=== PATIENT | male | born 1950 | race Asian ===

== ENCOUNTER → 2017-04-26 | Outpatient (CLI) | payer MEDICARE, OTHER | END | disposition home or self-care (01) | LOC: RADMN 08:32 | PROVIDERS: ATTEND Physical Medicine & Rehabilitation Spinal Cord Injury Medicine | DX: M48.061 Spinal stenosis, lumbar region without neurogenic claudication (principal); M51.26 Other intervertebral disc displacement, lumbar region; M23.222 Derangement of posterior horn of medial meniscus due to old tear or injury, left knee; M94.262 Chondromalacia, left knee; M25.462 Effusion, left knee; M25.461 Effusion, right knee; M76.9 Unspecified enthesopathy, lower limb, excluding foot; M54.17 Radiculopathy, lumbosacral region | CPT/HCPCS: 72148; 73721 ==